=== PATIENT | male | born 1970 | race Asian ===

== ENCOUNTER 2020-03-07 06:35 | Day surgery (SDC) | payer OTHER ==
[2020-03-06 10:52] VITALS: BMI 35.8
[2020-03-07] MEDS ORDERED: MIDAZOLAM HCL 2 MG/2 ML SINGLE DOSE VIAL ONE ×2 (09:34→09:50)
[2020-03-07 12:36] VITALS: BP 120/70
[2020-03-07 12:39] VITALS: PULSE 70; TEMP 97.8
== END 2020-03-07 11:30 | disposition home or self-care (01) ==
LOC: JASU-SURG 06:35
PROVIDERS: ATTEND Urology
PROC: 0TF4XZZ Fragmentation in Left Kidney Pelvis, External Approach (ICD-10-PCS; principal; 2020-03-07 09:30)
DX: N20.0 Calculus of kidney (principal)
CPT/HCPCS: 82962